=== PATIENT | male | born 1990 | race Caucasian/White ===

== ENCOUNTER 2018-07-09 23:08 | Emergency (ER) | payer OTHER ==
[~2018-07-09] VITALS: Ht 177.8 cm; Wt 72.0 kg
[2018-07-09] MEDS ORDERED: EPINEPHrine 1:10,000 [1 MG/10 ML] SYRINGE IVP ONE (23:09)
[2018-07-09 23:33] VITALS: BP 117/48
[2018-07-09 23:34] LABS: GLUCOSE,POINT OF CARE 101 MG/DL (70-110)
[2018-07-10] MEDS ORDERED: CeFAZolin 1 GM/DEXTROSE 50 ML IV ONE
== END 2018-07-10 00:09 | disposition short-term general hospital (02) ==
LOC: EDBD 23:08 → EMS 23:08
DX: S91.002A Unspecified open wound, left ankle, initial encounter (principal); I46.8 Cardiac arrest due to other underlying condition; V13.4XXA Pedal cycle driver injured in collision with car, pick-up truck or van in traffic accident, initial encounter; Y93.89 Activity, other specified; Y92.89 Other specified places as the place of occurrence of the external cause; Y99.8 Other external cause status
CPT/HCPCS: 31500; 71045; 82962; 92950; 96374; 99291; J0171; 94002